=== PATIENT | female | born 1965 | race Caucasian/White ===

== ENCOUNTER 2016-10-14 01:35 | Emergency (ER) | payer OTHER ==
[2016-10-14] MEDS ORDERED: FAMOTIDINE IN SALINE, ISO-OSM 50 ML IV ONE (01:53)
[2016-10-14] MEDS ORDERED: METHYLPREDNISOLONE SOD 125 MG/2 ML VIAL ONE (01:53)
--- NOTE | 2016-10-14 03:30 | ER NURSING DOCUMENTATION ---
Nurse's Notes [facility] Name:Anna Jeffery Age:51 yrs Sex:Female :1965 Arrival Date:10/14/2016 Time:01:35 Bed4 Private MD:Physician, No Diagnosis:Anaphylaxis Presentation: 10/14 01:38 Presenting complaint: Patient states: Pt applied neosporin and a bandaid and then began rh having allergic reaction sx, she now c/o shortness of breath, generalized rash, chest tightness, tongue swelling and mild dizziness. Pt able to speak in full sentences and walk with steady gait. Transition of care: Home. Onset: The symptoms/episode began/occurred 1 hour(s) ago. Anaphylaxis evaluation, chest pain. 01:38 Method Of Arrival: Private Vehicle rh 01:38 Acuity: JARRED 2 Triage Assessment: 01:51 General: Appears uncomfortable, Behavior is cooperative. Pain: Complains of pain in rh chest Quality of pain is described as. EENT: Oral mucosa is moist. Reports Swelling of tongue. Neuro: Level of Consciousness is awake, alert, obeys commands, Oriented to person, place, time, event. Cardiovascular: Capillary refill < 3 seconds. Respiratory: Airway is patent Respiratory effort is even, unlabored, Respiratory pattern is regular, symmetrical, Reports shortness of breath. GI: Abdomen is obese, Denies nausea. : No deficits noted. Derm: Skin is intact, is healthy with good turgor, Skin is pink, warm & dry. Rash noted that is itchy, red, on GENERALIZED. Musculoskeletal: Circulation, motion, and sensation intact Range of motion intact in all extremities. Historical: - Allergies: Fluoxetine; - Home Meds: 1. celecoxib 200 mg oral cap 1 cap 2 times per day as needed 2. levothyroxine 175 mcg oral tab 1 tab once daily 3. sertraline 100 mg oral tab 1.5 tabs once daily 4. losartan-hydrochlorothiazide 100-25 mg oral tab 1 tab once daily 5. phentermine 37.5 mg oral tab 1 tab once daily before breakfast 6. combipatch - PMHx: HYPOTHYROIDISM; Diabetes - IDDM; DEPRESSION; Acute Allergic Reaction (February 10, 2015); - PSHx: HERNIA REPAIR; - Tetanus: < 10 years. - Ebola Screening: : Patient negative for fever greater than or equal to 101.5 degrees Fahrenheit, and additional compatible Ebola Virus Disease symptoms. - Immunization history: Flu Vaccine < 1 year. - Social history: Smoking status: Patient states was never smoker of tobacco. Screenin:05 Infectious Disease Risk None. Abuse screen: Denies threats or abuse. Denies injuries rh from another. Nutritional screening: No deficits noted. Assessment: 02:01 See Triage Assessment done by same RN. rh 02:06 Respiratory: Airway is patent Respiratory effort is even, unlabored, Respiratory rh pattern is regular, symmetrical, Breath sounds are clear bilaterally. Denies shortness of breath. 02:10 Derm: Skin is intact, is healthy with good turgor, Skin is pink, warm & dry. Rash noted rh that is Rash is resolved and so is tongue swelling sensation. 02:55 Reassessment: Pt c/o slight anxious feeling and a lump in her throat "feeling". rh Informed Dr Gleason. 03:12 Reassessment: Pts anxious feeling and lump in throat clearing . rh Vital Signs: 01:35 BP 172 / 92; Pulse 101; Resp 20; Pulse Ox 93% on R/A; Weight 95.25 kg; Height 5 ft. 2 rh in. (157.48 cm); Pain 0/10; 02:06 BP 143 / 67; Pulse 73; Resp 16; Pulse Ox 96% on R/A; Pain 0/10; rh 03:28 BP 166 / 66; Pulse 90; Resp 17; Pulse Ox 94% on R/A; Pain 0/10; rh 01:35 Body Mass Index 38.41 (95.25 kg, 157.48 cm) rh ED Course: 01:35 Patient arrived in ED. em2 01:36 Physician, No is Private Physician. em2 01:38 Carolyn Farias is Primary Nurse. rh 01:38 Triage completed. rh 01:40 Inserted peripheral IV: 20 gauge in left antecubital area and blood collected. mv 01:40 Notified ED Physician of patient's arrival and chief complaint. Dr. Gleason notified. rh 01:40 lunchroom monitor on. Pulse ox on. rh 01:48 Troy Gleason MD is Attending Physician. jm 01:58 Jeramy Wolff MD is Referral Physician. jm 02:05 Valuables Given to family. Patient has correct armband on for positive identification. rh Bed in low position. Call light in reach. Side rails up X 1. Warm blanket given. Pillow given. Family accompanied patient. Administered Medications: 01:44 Drug: NS 0.9% 1000 ml; Route: IV; Rate: bolus; Site: left antecubital; rh 03:28 Follow up: IV Status: Completed infusion; IV Intake: 1000ml rh 01:45 Drug: Pepcid 20 mg; Route: IVPB; Site: left antecubital; rh 02:05 Follow up: IV Status: Completed infusion; IV Intake: 50ml rh 01:46 Drug: Solu-MEDROL 125 mg; Route: IVP; Site: left antecubital; rh 02:21 Follow up: Response: No adverse reaction rh 01:52 Drug: EPINEPHrine 1:1000 0.3 ml; Route: IM; Site: left deltoid; rh 02:21 Follow up: Response: Marked relief of symptoms rh 03:28 Drug: predniSONE 40 mg; Route: PO; rh 03:28 Follow up: Response: No adverse reaction Point of Care Testing: Blood Glucose: 01:51 Blood Glucose: 153 mg/dL; em1 Ranges: Intake: 02:05 IV: 50ml; Total: 50ml. rh 03:28 IV: 1000ml; Total: 1050ml. Outcome: 01:58 Discharge ordered by . armani 03:28 Discharged to home ambulatory, with significant other. 03:28 Condition: improved 03:28 Discharge Assessment: Patient awake, alert and oriented x 3. No cognitive and/or functional deficits noted. Patient verbalized understanding of disposition instructions. 03:28 Discharge instructions given to patient, significant other, Instructed on discharge instructions, follow up and referral plans. medication usage, Demonstrated understanding of instructions, medications, Prescriptions given X 2. 03:28 IV D/Kalia 03:29 Patient left the ED. 04 11:53 Discharge F/U Call: Unable to reach: left voicemail: lp Signatures: Sana Robledo RN RN lp Meyer, John, MD MD jm Meinking[employer], [employer] em1 Meiave-reg, Ary-reg em2 Carolyn Farias peña vazquez
--- NOTE | 2016-10-14 03:30 | ER PHYSICIAN DOCUMENTATION ---
Physician Documentation [facility] Name:Anna Jeffery Age:51 yrs Sex:Female :1965 Arrival Date:10/14/2016 Time:01:35 Bed4 Private MD:Physician, No ED Troy Panda Disposition: 10/14/16 01:58 Discharged to Home/Self Care. Impression: Anaphylaxis. - Condition is Good. - Discharge Instructions: ANAPHYLAXIS, General. - Prescriptions for EpiPen 0.3 mg/0.3 mL Injection Injectable - inject 0.3 milligram by INTRAMUSCULAR route as needed; 1 packet. Prednisone 20 mg Oral - take 2 tablet by ORAL route once daily for 4 days; 4 tablet. - Medical Reconciliation form form. - Follow up: Jeramy Wolff MD; When: 1 week; Reason: Continuance of care. - Problem is new. - Symptoms have improved. HPI: 10/14 02:00 This 51 yrs old Female presents to ER via Private Vehicle with complaints of jm Allergic Reaction. 02:00 The patient presents with rash, swelling of the tongue. Onset: The symptom(s)/episode jm began/occurred just prior to arrival. Associated signs and symptoms: Pertinent positives: rash, swelling. Possible causes: antibiotics, triple abx ointment. . At home the patient or guardian has treated the symptoms with Benadryl. Severity of symptoms: in the emergency department the symptoms are worse mildly, more tongue involvement . The patient has experienced a previous episode. The patient has not recently seen a physician. Pt was putting abx ointment on her finger cut and about 30 minutes later noted a diffuse rash w itching. Pt took some Benadryl and came to the ER. Pt feels like her tongue is swelling. . Historical: - Allergies: Fluoxetine; - Home Meds: 1. celecoxib 200 mg oral cap 1 cap 2 times per day as needed 2. levothyroxine 175 mcg oral tab 1 tab once daily 3. sertraline 100 mg oral tab 1.5 tabs once daily 4. losartan-hydrochlorothiazide 100-25 mg oral tab 1 tab once daily 5. phentermine 37.5 mg oral tab 1 tab once daily before breakfast 6. combipatch - PMHx: HYPOTHYROIDISM; Diabetes - IDDM; DEPRESSION; Acute Allergic Reaction (February 10, 2015); - PSHx: HERNIA REPAIR; - Tetanus: < 10 years. - Ebola Screening: : Patient negative for fever greater than or equal to 101.5 degrees Fahrenheit, and additional compatible Ebola Virus Disease symptoms. - Immunization history: Flu Vaccine < 1 year. - Social history: Smoking status: Patient states was never smoker of tobacco. ROS: 12:01 Constitutional: Negative for fatigue, fever. 12:01 Eyes: Negative for injury or acute deformity, blurry vision. 12:01 ENT: Negative for rhinorrhea, sinus congestion, sinus pain, sore throat. 12:01 ENT: Positive for swelling. 12:01 Neck: Negative for tenderness. 12:01 Cardiovascular: Negative for chest pain, palpitations. 12:01 Respiratory: Negative for cough, shortness of breath. 12:01 Abdomen/GI: Negative for nausea, vomiting. 12:01 Skin: Positive for rash. 12:01 Neuro: Negative for dizziness. 12:01 Psych: Positive for anxiety. 12:01 All other systems are negative. Exam: 12:01 Constitutional: The patient appears alert, awake, obese. 12:01 Eyes: Periorbital structures: appear normal, Pupils: equal, round, and reactive to light and accomodation. 12:01 ENT: Mouth: Tongue: is swollen, Posterior pharynx: swelling, is not appreciated, Voice: is normal. 12:01 Neck: External neck: is normal, ROM/movement: is normal. 12:01 Cardiovascular: Rate: normal, Rhythm: regular. 12:01 Respiratory: Respirations: normal, Breath sounds: are normal, wheezing, is not appreciated, stridor, is not appreciated. 12:01 Abdomen/GI: Bowel sounds: normal, Palpation: abdomen is soft and non-tender. 12:01 Musculoskeletal/extremity: Extremities: all appear grossly normal, with no appreciated pain with palpation, ROM: no acute changes. 12:01 Skin: Appearance: flushing, noted on the chest, urticaria, and is diffusely located. 12:01 Neuro: Mentation: is normal, Memory: is normal. 12:01 Psych: Behavior/mood is pleasant, cooperative, anxious, Affect is calm. Vital Signs: 01:35 BP 172 / 92; Pulse 101; Resp 20; Pulse Ox 93% on R/A; Weight 95.25 kg; Height 5 ft. 2 rh in. (157.48 cm); Pain 0/10; 02:06 BP 143 / 67; Pulse 73; Resp 16; Pulse Ox 96% on R/A; Pain 0/10; rh 03:28 BP 166 / 66; Pulse 90; Resp 17; Pulse Ox 94% on R/A; Pain 0/10; rh 01:35 Body Mass Index 38.41 (95.25 kg, 157.48 cm) rh MDM: 01:48 Patient medically screened. 02:00 Differential diagnosis: anaphylaxis, urticaria. Data reviewed: vital signs, nurses notes, old medical records, and as a result, I will discharge patient. Counseling: I had a detailed discussion with the patient and/or guardian regarding: the historical points, exam findings, and any diagnostic results supporting the discharge/admit diagnosis, the need for outpatient follow up, with the patient's primary care provider. Response to treatment: the patient's symptoms have markedly improved after treatment. ED course: PT given epi, Solu-Medrol, and pepcid. Pt observed for a few hours and was DC'd home w more prednisone for 5 days,. . 10/14 01:59 Order name: Iv Saline Lock; Complete Time: 02:00 10/14 01:59 Order name: Cardiac Monitoring - Continuous; Complete Time: 02:00 10/14 01:59 Order name: Pulse Ox Continuous; Complete Time: 02:00 Dispensed Medications: 01:44 Drug: NS 0.9% 1000 ml; Route: IV; Rate: bolus; Site: left antecubital; rh 03:28 Follow up: IV Status: Completed infusion; IV Intake: 1000ml rh 01:45 Drug: Pepcid 20 mg; Route: IVPB; Site: left antecubital; rh 02:05 Follow up: IV Status: Completed infusion; IV Intake: 50ml rh 01:46 Drug: Solu-MEDROL 125 mg; Route: IVP; Site: left antecubital; rh 02:21 Follow up: Response: No adverse reaction rh 01:52 Drug: EPINEPHrine 1:1000 0.3 ml; Route: IM; Site: left deltoid; rh 02:21 Follow up: Response: Marked relief of symptoms rh 03:28 Drug: predniSONE 40 mg; Route: PO; rh 03:28 Follow up: Response: No adverse reaction Point of Care Testing: Blood Glucose: 01:51 Blood Glucose: 153 mg/dL; em1 Ranges: Critical Glucose Levels:Adult <50 mg/dl or >400 mg/dl <40 mg/dl or >180 mg/dl Signatures: Troy Gleason MD MD jm Hofsess, Rachel
[2016-10-14] MEDS ORDERED: predniSONE 10 MG TABLET PO ONE (03:33)
== END 2016-10-14 03:29 | disposition home or self-care (01) ==
LOC: ER 01:35
DX: T78.2XXA Anaphylactic shock, unspecified, initial encounter (principal); E11.9 Type 2 diabetes mellitus without complications; Z79.899 Other long term (current) drug therapy
CPT/HCPCS: 96361; 96365; 96372; 96375; 99284; J0171; J2930; J7512